=== PATIENT | female | born 2000 | race Caucasian/White ===

== ENCOUNTER 2019-03-03 10:18 | Emergency (ER) | payer BC ==
[~2019-03-03] VITALS: Ht 152.4 cm; Wt 65.8 kg
[2019-03-03 10:22] VITALS: BP_SYST 147
--- NOTE | 2019-03-03 10:28 | NUR ---
Patient to ER bed 6 to gown for evaluation. Side rails up.
--- NOTE | 2019-03-03 10:30 | NUR ---
ED MD Cervantes bedside evaluating patient.
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
[2019-03-03] MEDS ORDERED: IBUPROFEN 800 MG TABLET PO ONE (11:00)
[2019-03-03 11:38] VITALS: BP_SYST 138
--- NOTE | 2019-03-03 11:38 | NUR ---
Patient given written and verbal discharge instructions and verbalizes understanding. ER MD discussed with patient the results and treatment provided. Patient in stable condition. ID arm band removed. Rx of motrin given. Patient educated on pain management and to follow up with PMD. Pain Scale 3/10. Opportunity for questions provided and answered. Medication side effect fact sheet provided.
== END 2019-03-03 11:38 | disposition home or self-care (01) ==
LOC: SED 10:18
DX: S93.401A Sprain of unspecified ligament of right ankle, initial encounter (principal); V49.59XA Passenger injured in collision with other motor vehicles in traffic accident, initial encounter; Y93.89 Activity, other specified; Y92.488 Other paved roadways as the place of occurrence of the external cause; Y99.8 Other external cause status
CPT/HCPCS: 99283